=== PATIENT | male | born 1965 | race Caucasian/White ===

== ENCOUNTER 2021-10-06 16:17 | Emergency (ER) | payer BC ==
[~2021-10-06] VITALS: Ht 195.6 cm; Wt 104.5 kg
[2021-10-06 18:24] LABS: BASO % 0.7 % (0.0-2.0); EOS % 0.2 % (0.0-4.0); GRAN # 3.3 K/mm3 (1.4-6.5); GRAN % 72.5 % (42.2-75.2); HEMATOCRIT 49.9 % (42.0-52.0); LYMPH # 0.7 K/mm3 (1.2-3.4); LYMPH % 14.9 % (20.0-51.0); MEAN CELL VOLUME 96 fl (80.0-100.0); MEAN CORPUSCULAR HEMOGLOBIN 35 pg (27-31); MEAN CORPUSCULAR HGB CONC 37 g/dl (33.0-37.0); MEAN PLATELET VOLUME 10.9 fl (7.4-10.4); MONO # 0.5 K/mm3 (0.1-0.6); MONO % 11.5 % (1.7-9.3); PLATELET COUNT 107 K/mm3 (130-400); RED BLOOD COUNT 5.22 M/mm3 (4.20-5.60); REDCELL DISTRIBUTION WIDTH-CV 12.3 % (11.5-14.5)
[2021-10-06 18:26] LABS: HEMOGLOBIN 18.3 g/dl (13.5-18.0)
[2021-10-06 18:38] LABS: ALBUMIN 4.2 gm/dL (3.5-5.0); BILIRUBIN,TOTAL 0.7 mg/dL (0.2-1.2); C-REACTIVE PROTEIN 1.04 mg/dL (0.00-0.50); CALCIUM 9.1 mg/dL (8.4-10.2); CREATININE, serum 1.17 mg/dL (0.72-1.25); POTASSIUM 3.9 mmol/L (3.5-4.5); TOTAL PROTEIN 7.7 gm/dL (6.2-8.1)
[2021-10-06 20:55] VITALS: BP 159/99; PULSE 81; TEMP 98.5
== END 2021-10-06 20:55 | disposition home or self-care (01) ==
LOC: COL.ER 16:17
PROVIDERS: Emergency Medicine
DX: U07.1 COVID-19 (principal); I10 Essential (primary) hypertension; F17.290 Nicotine dependence, other tobacco product, uncomplicated; Z28.310 Unvaccinated for COVID-19
CPT/HCPCS: J0360; J7030